=== PATIENT | male | born 1970 | race African-American/Black ===

== ENCOUNTER 2018-05-10 15:12 | Emergency (ER) | payer MEDICAID ==
[~2018-05-10] VITALS: Ht 170.2 cm; Wt 66.0 kg
[2018-05-10] MEDS ORDERED: IPRATROPIUM BROMIDE (0.02%) 0.5MG/2.5ML NEB HHN STA (15:50)
[2018-05-10] MEDS ORDERED: METHYLPREDNISOLONE SOD SUCC 125 MG/2 ML VIAL IV STA (15:50)
[2018-05-10] MEDS ORDERED: ALBUTEROL (0.083%) 2.5MG/3ML NEB HHN STA ×2 (15:50→17:56)
[2018-05-10 16:17] LABS: CHLORIDE 104 mEq/L (98-107)
[2018-05-10 16:18] LABS: BASOPHILS % 1.4 % (0.0-2.0); EOSINOPHILS % 3.3 % (0.0-5.0); HEMATOCRIT. 47.4 % (42.0-52.0); HEMOGLOBIN. 15.8 g/dL (14.0-18.0); LYMPHOCYTES % 26.5 % (20.0-50.0); MEAN CORPUSCULAR HEMOGLOBIN 29.3 pg (28.0-32.0); MEAN CORPUSCULAR VOLUME 87.9 fL (80.0-94.0); MEAN PLATELET VOLUME 7.6 fl (7.4-10.4); NEUTROPHILS % 59.8 % (40.0-76.0); PLATELET 364 x1000/uL (130-400); PROTHROMBIN TIME 9.6 sec (9.1-11.1); RED CELL DISTRIBUTION WIDTH 14.2 % (11.6-14.6)
[2018-05-10 18:53] VITALS: BP 159/97
== END 2018-05-10 19:14 | disposition home or self-care (01) ==
LOC: ER 17:03 → CANBEDREQ 19:19
DX: J45.901 Unspecified asthma with (acute) exacerbation (principal); Z87.891 Personal history of nicotine dependence
CPT/HCPCS: 36415; 71045; 80053; 83880; 84484; 85025; 85610; 93005; 94640; 94644; 96374; 99285; J2930; J7611